=== PATIENT | male | born 1960 | race Caucasian/White ===

== ENCOUNTER 2020-11-27 15:54 | Emergency (ER) | payer BC, SELFPAY ==
--- NOTE | 2020-11-27 16:00 | ED.EAR ---
HPI - Ear Problem General Chief complaint: Ear Stated complaint: ear clogged Time Seen by Provider: 11/27/20 16:18 Source: patient and RN notes reviewed Mode of arrival: ambulatory Limitations: no limitations History of Present Illness MD Complaint: decreased hearing Location: right ear Related Data Home Medications Medication Instructions Recorded Confirmed amlodipine 5 mg PO DAILY 11/27/20 11/27/20 atorvastatin 20 mg PO DAILY 11/27/20 11/27/20 fluticasone propionate 2 spray INTRANASAL DAILY 11/27/20 11/27/20 lisinopril 40 mg PO DAILY 11/27/20 11/27/20 montelukast 10 mg PO DAILY 11/27/20 11/27/20 pantoprazole 40 mg PO DAILY 11/27/20 11/27/20 tadalafil 20 mg PO DAILY PRN 11/27/20 11/27/20 Allergies Allergy/AdvReac Type Severity Reaction Status Date / Time oxycodone Allergy Vomiting Verified 11/27/20 16:15 Review of Systems Review of Systems: Narrative: CONSTITUTIONAL: Denies malaise, chills, sweats, or fever. EYES: Denies visual changes, redness, or discharge. ENT: Denies rhinorrhea, congestion, sinus pain, otalgia and sore throat. Reports decreased urinary CARDIOVASCULAR: Denies chest pain, palpitations, or edema. RESPIRATORY: Denies cough dyspnea. GASTROINTESTINAL: Denies abdominal pain, nausea, vomiting, diarrhea SKIN: Denies rash or itching. MUSCULOSKELETAL: Denies myalgia. NEUROLOGIC: Denies headache. All systems reviewed & are unremarkable except as noted in HPI and below PMFSH Comments At time of signature, agree with nursing past medical, surgical, social and family history. There is no relevant family history pertinent to the presenting complaint Exam Narrative: Exam Narrative: GENERAL: Well-appearing, well-nourished, and in no acute distress. HEAD: Normocephalic EYES: PERRLA, conjunctivae clear ENT: Nares clear. Mucous membranes moist. TM not visible due to cerumen impaction bilaterally; no tragal tenderness. NECK: Supple. No lymphadenopathy CHEST: No respiratory distress, speaks in full sentences. HEART: Regular rate and rhythm. No murmur heard. SKIN: Warm, dry, no rash. NEURO: Alert and oriented x3. PSYCH: Normal mood and affect Course Course Emergency Course: Patient is aware of diagnosis, understands and agrees to treatment plan. Anticipatory guidance given. Patient agrees to follow-up as directed and is aware of reasons to seek care at the emergency department. Portions of this record may have been created with voice recognition software Vital Signs Vital signs: Reviewed. Procedures Ear Wax Removal Both Ears: Ear Wax Removal Date: 11/27/20 Ear Wax Removal Time: 16:28 Cerumenolytic Used: 5-10% Sodium Bicarb solution Results: Re-examined: cerumen removed completely TM Examination: TM(s) intact, normal appearance Ear Canal Exam: atraumatic Patient Tolerated Procedure: well Complications: no problems Technique: ear canal irrigated Additional Comments: TM bilaterally with dull light reflex Medical Decision Making MDM Narrative Medical decision making narrative: Differential diagnosis considered: allergic rhinitis, upper respiratory tract infection, sinusitis, rhinosinusitis, nasopharyngitis. viral pharyngitis, otitis media, otitis externa, foreign body, eustachian tube dysfunction, cerumen impaction. Exam findings show no acute concerns or changes; patient is non-toxic appearing and is in no distress. Patient is appropriate for outpatient treatment and follow-up. Critical Care Time Critical Care Time Critical Care Time: No Discharge Plan Discharge Clinical Impression: Acute dysfunction of both eustachian tubes Cerumen impaction Qualifiers: Laterality: bilateral Qualified Code(s): H61.23 - Impacted cerumen, bilateral Patient Disposition: Home, Self-Care Condition: Stable Instructions: General Patient Instructions, Fluid In The Ear (Serous Otitis Media) (ED) Additional Instructions: 1) Please follow-up with y
[2020-11-27 16:07] VITALS: BP 132/74; PULSE 81; RESP 12; TEMP 37.1; O2SAT 99
== END 2020-11-27 17:00 | disposition home or self-care (01) ==
PROVIDERS: Emergency Provider Nurse Practitioner; PCP Internal Medicine
DX: H69.93 Unspecified Eustachian tube disorder, bilateral (principal); H61.23 Impacted cerumen, bilateral; E78.00 Pure hypercholesterolemia, unspecified; I10 Essential (primary) hypertension; K21.9 Gastro-esophageal reflux disease without esophagitis; Z85.528 Personal history of other malignant neoplasm of kidney; Z90.5 Acquired absence of kidney
CPT/HCPCS: 69209; 99212; A9270; G0463

== ENCOUNTER 2021-05-25 11:59 | Emergency (ER) | payer BC, SELFPAY ==
[2021-05-25 12:08] VITALS: BP 155/89; PULSE 72; RESP 16; TEMP 36.1; O2SAT 100
--- NOTE | 2021-05-25 13:57 | ED.EAR ---
HPI - Ear Problem General Chief complaint: Ear Stated complaint: Dizzy Time Seen by Provider: 05/25/21 13:53 Source: patient, RN notes reviewed and old records reviewed Mode of arrival: ambulatory Limitations: no limitations History of Present Illness HPI Narrative: 60-year-old male who presents to [facility] with complaints of feeling some dizziness and having some left ear pressure and discomfort with nasal drainage which started yesterday. Patient denies any sore throat, denies any chills or sweats or any known fevers, denies any body aches. He reports no COVID or Flu shot. Patient has not taken any OTC medications for his symptoms. MD Complaint: other (dizziness) Location: left ear Related Data Home Medications Medication Instructions Recorded Confirmed amlodipine 5 mg PO DAILY 11/27/20 05/25/21 atorvastatin 20 mg PO DAILY 11/27/20 05/25/21 fluticasone propionate 2 spray INTRANASAL DAILY 11/27/20 05/25/21 lisinopril 40 mg PO DAILY 11/27/20 05/25/21 montelukast 10 mg PO DAILY 11/27/20 05/25/21 pantoprazole 40 mg PO DAILY 11/27/20 05/25/21 tadalafil 20 mg PO DAILY PRN 11/27/20 05/25/21 Allergies Allergy/AdvReac Type Severity Reaction Status Date / Time oxycodone Allergy Vomiting Verified 05/25/21 12:58 Review of Systems Review of Systems: CONSTITUTIONAL: Denies fever, chills, or sweats. EYES: Denies visual changes, redness, or discharge. ENT: Positive for rhinorrhea, congestion,no sore throat,positive for otalgia. CARDIOVASCULAR: Denies chest pain, palpitations, or edema. RESPIRATORY: Denies cough or dyspnea. GASTROINTESTINAL: Denies abdominal pain, nausea, vomiting, or diarrhea. GENITOURINARY: Denies dysuria or hematuria. SKIN: Denies rash or itching. MUSCULOSKELETAL: Denies back pain, joint pain, or myalgia. NEUROLOGIC: Denies headache, numbness, or weakness, reports dizziness PSYCHIATRIC: Denies anxiety or depression. All systems reviewed & are unremarkable except as noted in HPI and below [facility] Past Medical History Medical History (Updated 05/26/21 @ 00:56 by Remedios Jones NP) GERD (gastroesophageal reflux disease) Hypertension Renal cancer Surgical History Surgical History (Updated 05/26/21 @ 00:56 by Remedios Jones NP) H/O arthroscopy of left knee History of right nephrectomy Social History Social History (Updated 05/26/21 @ 00:57 by Remedios Jones NP) Smoking status: Never smoker Alcohol intake: unknown Substance use: unknown Living arrangements: with family Gender identity (if verbalized by the patient): Male Exam Narrative: GENERAL: Well-appearing, well-nourished, and in no acute distress. HEAD: Normocephalic, atraumatic. EYES: PERRLA and EOMI. ENT: Nares patent with clear rhinorrhea no epistaxis. Mucous membranes moist.Right TM normal with dull light reflex, Left ear TM red with bulging and mucoid drainage noted.Throat mild redness with no lesions or exudates or tonsil enlargement with some post nasal drainage. NECK: Supple.no lymphadenooathy CHEST: Clear to auscultation. No respiratory distress. no acute cough or dyspnea, no tachypnea,SAO2 100% on room air. HEART: Regular rate and rhythm. No murmur heard. Normal peripheral pulses. ABDOMEN: Soft, nontender, nondistended, normal active bowel sounds. EXTREMITIES: Normal range of motion. No edema. SKIN: Warm, dry, no rash. NEURO: No focal deficits. Alert and oriented x3. Course Course Level of Care: Express Care Visit Vital Signs Vital signs: Vital Signs Temperature 36.1 C L 05/25/21 12:08 Pulse Rate 72 05/25/21 12:08 Respiratory Rate 16 05/25/21 12:08 Blood Pressure 155/89 H 05/25/21 12:08 Pulse Oximetry 100 05/25/21 12:08 Temperature 36.1 C L 05/25/21 12:08 Pulse Rate 72 05/25/21 12:08 Respiratory Rate 16 05/25/21 12:08 Blood Pressure 155/89 H 05/25/21 12:08 Pulse Oximetry 100 05/25/21 12:08 Medical Decision Making Differential Diagnosis Differential Diagnosis: otit
== END 2021-05-25 14:27 | disposition home or self-care (01) ==
PROVIDERS: Emergency Provider Registered Nurse; PCP Internal Medicine
DX: H66.92 Otitis media, unspecified, left ear (principal); R42 Dizziness and giddiness; K21.9 Gastro-esophageal reflux disease without esophagitis; I10 Essential (primary) hypertension
CPT/HCPCS: 99213; G0463

== ENCOUNTER 2022-02-14 11:09 | Emergency (ER) | payer BC, SELFPAY ==
[2022-02-14 11:26] VITALS: BP 117/75; PULSE 69; RESP 16; TEMP 36.2; O2SAT 100
--- NOTE | 2022-02-14 12:28 | ED.DIZZY ---
HPI - Dizziness General Chief Complaint: Dizziness Stated Complaint: Dizziness Time Seen by Provider: 02/14/22 12:41 Source: patient Mode of arrival: ambulatory Limitations: no limitations History of Present Illness HPI Narrative: 61-year-old male presents with concern for dizziness. He reports since Monday he has been having a feeling of the room spinning like or like he just got off a roller coaster when he lies down. He reports lying flat makes it worse. He reports occasionally changing position of his head makes it worse. He denies headache, syncope, near syncope, weakness in the extremity, difficulty speaking or swallowing, ear pain, nasal congestion, rhinorrhea. He reports he has a history of vertigo and problems with his ears. He denies [id number]-mnxipid intervention. MD elicited complaint: dizziness Related Data Home Medications Medication Instructions Recorded Confirmed amlodipine 5 mg tablet 5 mg PO DAILY 11/27/20 02/14/22 atorvastatin 20 mg tablet 20 mg PO DAILY 11/27/20 02/14/22 fluticasone propionate 50 2 spray intranasal DAILY 11/27/20 02/14/22 mcg/actuation nasal spray,suspension lisinopril 40 mg tablet 40 mg PO DAILY 11/27/20 02/14/22 montelukast 10 mg tablet 10 mg PO DAILY 11/27/20 02/14/22 pantoprazole 40 mg tablet,delayed 40 mg PO DAILY 11/27/20 02/14/22 release tadalafil 20 mg tablet 20 mg PO DAILY PRN Erectile 11/27/20 02/14/22 Dysfunction Allergies Allergy/AdvReac Type Severity Reaction Status Date / Time oxycodone Allergy Vomiting Verified 02/14/22 12:21 Review of Systems Review of Systems: CONSTITUTIONAL: Denies malaise, chills, sweats, or fever. EYES: Denies visual changes, redness, or discharge. ENT: Denies rhinorrhea, congestion, sinus pain, otalgia or sore throat. CARDIOVASCULAR: Denies chest pain, palpitations, or edema. RESPIRATORY: Denies cough or dyspnea. GASTROINTESTINAL: Denies nausea, vomiting SKIN: Denies rash or itching. MUSCULOSKELETAL: Denies back pain, joint pain, or myalgia. NEUROLOGIC: Denies numbness, weakness, or headache. Reports dizziness All systems reviewed & are unremarkable except as noted in HPI and below [facility] Past Medical History Medical History (Updated 02/14/22 @ 13:32 by Vero Bronson NP) GERD (gastroesophageal reflux disease) Hypertension Renal cancer Surgical History Surgical History (Updated 05/26/21 @ 00:56 by Remedios Jones NP) H/O arthroscopy of left knee History of right nephrectomy Social History Social History (Updated 05/26/21 @ 00:57 by Remedios Jones NP) Smoking status: Never smoker Alcohol intake: unknown Substance use: unknown Gender identity (if verbalized by the patient): Male Comments At time of signature, agree with nursing past medical, surgical, social and family history. There is no relevant family history pertinent to the presenting complaint Exam Narrative: GENERAL: Well-appearing, well-nourished, and in no acute distress. HEAD: Normocephalic, atraumatic. EYES: PERRLA, sclera clear, and EOMI. No nystagmus. ENT: Nares clear, turbinates pink, no rhinorrhea or epistaxis. Mucous membranes moist. TM not visible due to excess cerumen bilaterally; no tragal tenderness. NECK: Supple. No lymphadenopathy. No carotid bruits CHEST: No respiratory distress. Clear to auscultation. No bony deformities, no asymmetry. Speaks in full sentences. HEART: Regular rate and rhythm. No murmur heard. Normal peripheral pulses. EXTREMITIES: Normal range of motion. No edema. Normal strength and sensation. SKIN: Warm, dry, no visible rash. NEURO: Alert and oriented x3. No focal deficits. Cranial nerves II through XII grossly intact. Corinne-Hallpike test positive PSYCH: Normal mood and affect Course Course Emergency Course: Patient is aware of diagnosis, understands and agrees to treatment plan. Anticipatory guidance given. Patient agrees to follow-up as directed and is aware of reasons to seek care at the e
== END 2022-02-14 13:47 | disposition home or self-care (01) ==
PROVIDERS: Emergency Provider Nurse Practitioner; PCP Internal Medicine
DX: R42 Dizziness and giddiness (principal); H61.23 Impacted cerumen, bilateral; K21.9 Gastro-esophageal reflux disease without esophagitis; I10 Essential (primary) hypertension; Z85.528 Personal history of other malignant neoplasm of kidney; Z90.5 Acquired absence of kidney
CPT/HCPCS: 69210; 99212; G0463

== ENCOUNTER → 2022-08-23 14:02 | Outpatient (CLI) | payer BC, SELFPAY ==
--- NOTE | ~2022-08-23 | MR_ITS ---
EXAMINATION: MR shoulder LT wo con DATE: 08/23/2022 15:58 INDICATION: Left shoulder pain. TECHNIQUE: Magnetic resonance imaging (MRI) of the left shoulder was performed without intravenous co ntrast. Sequences included axial PD-weighted FS FSE, coronal oblique PD-weighted FS FSE and T2-weight ed FS FSE, and sagittal oblique T2-weighted FS FSE and T1-weighted FSE. COMPARISON: None. FINDINGS: Coracoacromial arch: The acromion undersurface is curved in morphology (type II). There is severe acromioclavicular joint osteoarthritis including inferiorly directed osteophytes. There is moderate subacromial/subdeltoid bu rsitis. Rotator cuff: There is severe supraspinatus and infraspinatus tendinopathy. There is a bursal sided and articular s ided partial-thickness tear of supraspinatus tendon measuring 12 mm anterior posterior by 2.9 cm prox imal to distal by up to 80% tendon thickness. Teres minor tendon is normal. There is severe subscapul obi tendinopathy. There is no asymmetric fatty atrophy of the rotator cuff muscle bellies. Biceps tendon and glenoid labrum: Biceps tendon is in bicipital groove. There is mild intra-articular biceps tendinopathy. There is deg enerative tearing of the glenoid labrum. Fluid: There is a small glenohumeral joint effusion. Bones/cartilage: There is partial-thickness cartilage loss of glenoid and humeral head, deep at superior and posterior humeral head. Osteophytes are noted. There is a 14 mm lesion of increased T2-weighted signal intensi ty in left humeral head, most likely an enchondroma in the absence of known malignancy. IMPRESSION: 1. Severe rotator cuff tendinopathy with partial-thickness tear of supraspinatus tendon. 2. Moderate glenohumeral joint chondrosis. 3. Severe acromioclavicular joint osteoarthritis. 4. Small glenohumeral joint effusion. 5. Moderate subacromial/subdeltoid bursitis. 6. Mild intra-articular biceps tendinopathy. Reviewed, dictated and finalized at location A. IMPRESSION: 1. Severe rotator cuff tendinopathy with partial-thickness tear of supraspinatu s tendon. 2. Moderate glenohumeral joint chondrosis. 3. Severe acromioclavicular joint osteoarthritis. 4. Small glenohumeral joint effusion. 5. Moderate subacromial/subdeltoid bursitis. 6. Mild intra-articular biceps tendinopathy.
== END ==
PROVIDERS: PCP Orthopaedic Surgery; Visit Provider Orthopaedic Surgery
DX: M19.012 Primary osteoarthritis, left shoulder (principal); M75.52 Bursitis of left shoulder; M25.412 Effusion, left shoulder
CPT/HCPCS: 73221

== ENCOUNTER → 2022-09-06 08:54 | Outpatient (CLI) | payer BC, SELFPAY ==
--- NOTE | ~2022-09-06 | CT_ITS ---
EXAMINATION: CT shoulder LT wo con DATE: 09/06/2022 09:12 INDICATION: Left shoulder pain and bone lesion at the left humeral head on prior MRI. TECHNIQUE: High resolution computed tomography (CT) of the left shoulder was performed without intrav enous contrast. Additional sagittal and coronal reconstructions were performed. Automated exposure co ntrol and iterative reconstruction technique were employed. The dose-length product was 508.04 mGy-cm . COMPARISON: MRI dated 08/23/2022 FINDINGS: There is a subtle thin lobular rim of sclerosis along the margins of a 1.6 x 1.1 x 1.4 cm lesion petr esponding in size, location and lobular margins to the T2 hyperintense lesion seen on the prior MRI. Centrally there are regions of lower than soft tissue density. Overall the location and constellation of MR and CT imaging features would be most consistent with an enchondroma. Bone alignment is normal. No fracture. Severe acromioclavicular osteoarthritis. There is mild glenohu meral joint space narrowing. Subtle cortical irregularity along the inferomedial aspect of the savannah l head suggesting overlying high-grade chondromalacia. Likely chronic tear or degeneration of the sup erior to posterior glenoid labrum which is been at least partially replaced by moderate-sized margina l osteophytes along the rim of the glenoid. No evident glenohumeral joint effusion. Mild cystic versu s chronic erosive change along the middle facet of the greater tuberosity likely related to chronic r otator cuff disease. There is a small ossific density in the overlying distal infraspinatus tendon wh ich could represent either a chronic avulsed bone fragment, heterotopic ossicles related to chronic i njury or calcific tendinitis. No pathologically enlarged left axillary lymphadenopathy. Visualized po rtion of the left lung are clear. IMPRESSION: 1. 1.6 cm lesion with subtle thin lobular sclerotic rim at the metaphyseal side of the physis scar at the proximal left humerus with location constellation of MRI and CT features most consistent with an enchondroma. 2. Severe left acromioclavicular osteoarthritis. 3. Mild to moderate glenohumeral osteoarthritis with likely chronic tear/degeneration of the superior to posterior glenoid labrum. 4. Stigmata of chronic rotator cuff disease at the distal infraspinatus tendon and its greater tubero sity footplate. See prior MRI report for further detail. Reviewed, dictated and finalized at location A. IMPRESSION: 1. 1.6 cm lesion with subtle thin lobular sclerotic rim at the metaphyseal side of the physis scar at the proximal left humerus with location constellation of MRI and CT features most consistent with an enchondroma. 2. Severe left acromioclavicular osteoarthritis. 3. Mild to moderate glenohumeral osteoarthritis with likely chronic tear/degene ration of the superior to posterior glenoid labrum. 4. Stigmata of chronic rotator cuff disease at the distal infraspinatus tendon and its greater tuberosity footplate. See prior MRI report for further detail.
== END ==
PROVIDERS: PCP Internal Medicine; Visit Provider Orthopaedic Surgery
DX: M75.92 Shoulder lesion, unspecified, left shoulder (principal); M19.012 Primary osteoarthritis, left shoulder
CPT/HCPCS: 73200

== ENCOUNTER 2023-08-11 14:42 | Emergency (ER) | payer BC, SELFPAY ==
[2023-08-11 14:58] VITALS: BP 132/95; PULSE 86; RESP 16; TEMP 35.7; O2SAT 99
--- NOTE | 2023-08-11 15:28 | ED.MALEGU ---
HPI - Male Genitourinary General Chief complaint: Urogenital-Male Stated complaint: urinary issue Time Seen by Provider: 08/11/23 15:14 Source: patient and RN notes reviewed Mode of arrival: ambulatory Limitations: no limitations History of Present Illness HPI Narrative: Patient presents today complaining of some urinary hesitancy since last night as well as decreased stream and dribbling. He also reports some intermittent right lower quadrant abdominal pain that is present prior to urinating, but resolves after voiding. Denies dysuria, hematuria. History of right nephrectomy due to cancer. Denies history of prostate issues. No history of frequency. Related Data Home Medications Medication Instructions Recorded Confirmed montelukast 10 mg tablet 10 mg PO DAILY 11/27/20 08/11/23 pantoprazole 40 mg tablet,delayed 40 mg PO DAILY 11/27/20 08/11/23 release tadalafil 20 mg tablet 20 mg PO DAILY PRN Erectile 11/27/20 08/11/23 Dysfunction anastrozole 1 mg tablet 1 mg PO .2x/week 02/07/23 02/07/23 cabozantinib 40 mg tablet 40 mg PO DAILY 02/07/23 08/11/23 (Cabometyx) fexofenadine [Cony Allergy] PO 02/07/23 02/07/23 folic acid 1 mg tablet 1 mg PO DAILY 02/07/23 08/11/23 methotrexate sodium (PF) 50 mg 60 mg .Route MONTHLY 02/07/23 08/11/23 solution for injection mometasone 50 mcg/actuation nasal 2 spray intranasal DAILY PRN 02/07/23 08/11/23 spray (Nasonex 24hr Allergy) Congestion prednisone 10 mg tablet 10 mg PO DAILY 02/07/23 08/11/23 prochlorperazine maleate 10 mg 10 mg PO Q8H PRN Nausea And 02/13/23 08/11/23 tablet (Compazine) Vomiting levothyroxine 50 mcg tablet 50 mcg PO . q.a.m. 04/07/23 08/11/23 Allergies Allergy/AdvReac Type Severity Reaction Status Date / Time oxycodone Allergy Vomiting Verified 08/11/23 15:01 Review of Systems Review of Systems: CONSTITUTIONAL: Denies body aches, fever, chills, or sweats. EYES: Denies visual changes, redness, or discharge. ENT: Denies rhinorrhea, congestion, sore throat, or otalgia. CARDIOVASCULAR: Denies chest pain, palpitations, or edema. RESPIRATORY: Denies cough or dyspnea. GASTROINTESTINAL: Denies nausea, vomiting, or diarrhea.+ intermittent abdominal pain GENITOURINARY: Denies dysuria or hematuria.+ hesitancy, small stream SKIN: Denies rash, itching, or wounds. MUSCULOSKELETAL: Denies back pain, joint pain, or myalgia. NEUROLOGIC: Denies headache, numbness, tingling, or weakness. PSYCH: Denies depression or anxiety. [facility] Past Medical History Medical History Adrenal insufficiency Encounter to establish care GERD (gastroesophageal reflux disease) Hyperlipidemia Hypertension Hypothyroidism, unspecified Insomnia Metastatic renal cell carcinoma to lung (~09/02/19) Left upper lobe wedge Resection 08/04/2021 with metastatic renal cell carcinoma. KRISTINA on CPAP Renal cancer (~08/2019) 7.5 cm stage III renal cell carcinoma on the right treated with radical nephrectomy 09/02/2019 with metastases to the lungs and pelvis. Rheumatoid arthritis Surgical History Surgical History H/O arthroscopy of left knee History of right nephrectomy Family History Family History Father Heart disease Mother Hypertension Depression Heart disease Sibling Hypertension Social History Social History Smoking status: Never smoker Alcohol intake: never Substance use: never Living arrangements: with family Gender identity (if verbalized by the patient): Male Comments At time of signature, I have reviewed and agree with nursing past medical, surgical, social and family history unless otherwise noted. Please see nursing chart for further information. There is no relevant family history pertinent to the presenting co
== END 2023-08-11 15:34 | disposition home or self-care (01) ==
PROVIDERS: Emergency Provider Nurse Practitioner; PCP Nurse Practitioner Family
DX: R39.11 Hesitancy of micturition (principal); R39.12 Poor urinary stream; K21.9 Gastro-esophageal reflux disease without esophagitis; E78.5 Hyperlipidemia, unspecified; I10 Essential (primary) hypertension; E03.9 Hypothyroidism, unspecified; G47.33 Obstructive sleep apnea (adult) (pediatric); M06.9 Rheumatoid arthritis, unspecified; Z85.528 Personal history of other malignant neoplasm of kidney; Z90.5 Acquired absence of kidney; Z85.118 Personal history of other malignant neoplasm of bronchus and lung; Z90.2 Acquired absence of lung [part of]
CPT/HCPCS: 81003; 87086; 87088; 99213; G0463

== ENCOUNTER 2023-12-20 13:06 | Outpatient (CLI) | payer BC, SELFPAY ==
--- NOTE | 2023-12-20 13:22 | ECG_ITS ---
Test Date: 2023-12-20 13:36:40 Measurements Intervals [place] Rate: 67 P: 56 MO: 140 QRS: 3 QRSD: 115 T: 50 QT: 384 QTc: 407 Interpretive Statements SINUS RHYTHM WITH OCCASIONAL VENTRICULAR PREMATURE COMPLEXES INTRAVENTRICULAR CONDUCTION DELAY BORDERLINE ECG No previous ECG available for comparison Electronically Signed On 12-20-2023 13:49:43 CDT by Olman Villegas D.O.
== END 2023-12-20 13:07 | disposition home or self-care (01) ==
LOC: ANHCARD 13:09
PROVIDERS: PCP Nurse Practitioner Family; Visit Provider Nurse Practitioner Family
DX: I10 Essential (primary) hypertension (principal); I49.9 Cardiac arrhythmia, unspecified; I49.3 Ventricular premature depolarization; I45.89 Other specified conduction disorders
CPT/HCPCS: 93005